=== PATIENT | male | born 1945 | race Caucasian/White ===

== ENCOUNTER 2017-12-11 11:35 | Emergency (ER) | payer OTHER ==
--- NOTE | 2017-12-11 11:46 | CPEKG ---
Heart Rate: 59 RR Interval: 1017 P-R Interval: 184 QRSD Interval: 92 QT Interval: 384 QTC Interval: 381 P Sumner: 61 QRS Sumner: 63 T Wave Sumner: 66 EKG Severity - BORDERLINE ECG - EKG Impression: SINUS RHYTHM EKG Impression: BORDERLINE ST ELEVATION, INFERIOR LEADS Electronically Signed By: Mark Anthony Vega 11-Dec-2017 15:07:30
[2017-12-11 12:12] LABS: PLATELET COUNT 204 10^3/uL (150-400)
[2017-12-11 12:20] LABS: INR 0.95 (0.83-1.16); PROTIME(PATIENT) 12.9 SEC (12.0-15.0)
--- NOTE | 2017-12-11 12:32 | EDPHY ---
H & P Stated Complaint: CP Time Seen by Provider: 12/11/17 11:57 - Personal History Current Tetanus Diphtheria and Acellular Pertussis (TDAP): Yes - Medical/Surgical History Hx Asthma: No Hx Chronic Respiratory Disease: No Hx Diabetes: Yes Hx Cardiac Disease: No Hx Renal Disease: No Hx Cirrhosis: No Hx Alcoholism: No Hx HIV/AIDS: No Hx Splenectomy or Spleen Trauma: No Other PMH: HTN, diabetes, GERD, glaucoma, cataracts - Social History Smoking Status: Never smoked Constitutional: Initial Vital Signs Temperature (C) 36.6 C 12/11/17 11:54 Heart Rate 65 12/11/17 11:54 Respiratory Rate 16 12/11/17 11:54 Blood Pressure 184/92 H 12/11/17 11:54 O2 Sat (%) 97 12/11/17 11:54 O2 Delivery Mode Nasal Cannula O2 (L/minute) 2 Allergies/Adverse Reactions: No Known Drug Allergies Allergy (Verified 12/11/17 12:01) Home Medications: Medication Instructions Recorded LISINOPRIL/HYDROCHLOROTHIAZIDE 12/11/17 Medical Decision Making - Diagnostics Imaging Results: Imaging Impressions Chest/Thorax CTA 12/11/17 12:58 Impression: 1. There is no CT evidence of pulmonary artery thromboemboli. 2. There is no focal infiltrate or effusion. 3. Sequela of old granulomatous disease. 4. There is a simple-appearing 2.6 cm lower pole left renal cortical cyst. 5. Mild generalized left adrenal gland hyperplasia. Findings were discussed with Mark Anthony Vega MD at 13:38, on 12/11/2017. Imaging: Discussed imaging studies w/ sack maker Radiologist, I viewed and interpreted images myself ED Course/Re-evaluation: CHIEF COMPLAINT: Chest pain, dyspnea HISTORY OF PRESENT ILLNESS: 72-year-old gentleman that after having a couple of sips of coffee this morning had a brief episode of upper abdominal and some chest pain. He felt a couple palpitations. He has never had symptoms like that before and got concerned and came to the hospital. He has been traveling from [place] via car recently. He denies any significant shortness of breath but feels little more short of breath than usual. He blames that on altitude. He denies any smoking. Denies any underlying heart or lung disease. REVIEW OF SYSTEMS: A 10 point review of systems was performed and is negative with the exception of the elements mentioned in the history of present illness. PHYSICAL EXAM: HR, BP, O2 Sat, RR. Temp noted General Appearance: Alert, well hydrated, appropriate, and non-toxic appearing. Head: Atraumatic without scalp tenderness or obvious injury Eyes: Pupils equal, round, reactive to light and accommodation, EOMI, no trauma , no injection. Ears: Clear bilaterally, no perforation, normal landmarks Nose: Atraumatic, no rhinorrhea, clear. Throat: There is no erythema or exudates, no lesions, normal tonsils, mucus membranes moist. Neck: Supple, nontender, no lymphadenopathy. Respiratory: No retractions, no distress, no wheezes, and no accessory muscle use. Lungs are clear to auscultation bilaterally. Cardiovascular: Regular rate and rhythm, no murmurs, rubs, or gallops. Good capillary refill all extremities. Gastrointestinal: Abdomen is soft, nontender, non-distended, no masses, no rebound, no guarding, no peritoneal signs. Musculoskeletal: Normal active ROM of all extremities, atraumatic. Neurological: Alert, appropriate, and interactive. The patient has non-focal cranial nerves, motor, sensory, and cerebellar exam. Skin: No rashes, good turgor, no nodules on palpation. Past medical history: This patient apparently had type 2 diabetes but no longer Past surgical history: Noncontributory Family history: Noncontributory but no significant heart disease Social history: Single, retired, does not abuse tobacco drugs or alcohol DIAGNOSTICS/PROCEDURES/CRITICAL CARE TIME: The 12 lead EKG was interpreted by myself. See hard copy and/or "tracemaster" electronic copy for interpretation. Sinus mechanism with borderline bradycardia DIFFERENTIAL DIAGNOSIS: The differential diagnosis for the patient's chest pain included but was not limited to myocardial ischemia, pulmonary embolus, chest wall pain, pleural inflammation, and pulmonary infectious causes. MEDICAL DECISION MAKING: This patient has negative troponin negative EKG and a very poor story for cardiac acute coronary syndrome. He had a couple sips of coffee and then brief episode of sharp chest pain which resolved. He also felt a couple of palpitations he believes. He feels completely normal now. He has been traveling by car from [place] and a slightly elevated D-dimer at 0.57 so I will perform CT angiography. He does not have a primary care doctor here his primary care is in [place]. CTA is negative for PE. Patient's presentation seem most likely related to his GERD. Reassessed patient and recommended Zantac and follow up with a local PCP. He remains unchanged with a normal exam. He is comfortable with plan for follow up. Return precautions discussed. - Data Points Laboratory Results: Laboratory Results 12/11/17 11:50 12/11/17 11:50 12/11/17 12/11/17 12/11/17 11:50 11:50 11:50 WBC 7.62 10^3/uL 10^3/uL (3.80-9.50) RBC 5.25 10^6/uL 10^6/uL (4.40-6.38) Hgb 15.9 g/dL g/dL (13.7-17.5) Hct 48.0 % % (40.0-51.0) MCV 91.4 fL fL (81.5-99.8) MCH 30.3 pg pg (27.9-34.1) MCHC 33.1 g/dL g/dL (32.4-36.7) RDW 11.6 % % (11.5-15.2) Plt Count 204 10^3/uL 10^3/uL (150-400) MPV 10.4 fL fL (8.7-11.7) Neut % (Auto) 59.6 % % (39.3-74.2) Lymph % (Auto) 28.9 % % (15.0-45.0) Keith % (Auto) 8.3 % % (4.5-13.0) Eos % (Auto) 2.8 % % (0.6-7.6) Baso % (Auto) 0.3 % % (0.3-1.7) Nucleat RBC Rel Count 0.0 % % (0.0-0.2) Absolute Neuts (auto) 4.55 10^3/uL 10^3/uL (1.70-6.50) Absolute Lymphs (auto) 2.20 10^3/uL 10^3/uL (1.00-3.00) Absolute Monos (auto) 0.63 10^3/uL 10^3/uL (0.30-0.80) Absolute Eos (auto) 0.21 10^3/uL 10^3/uL (0.03-0.40) Absolute Basos (auto) 0.02 10^3/uL 10^3/uL (0.02-0.10) Absolute Nucleated RBC 0.00 10^3/uL 10^3/uL (0-0.01) Immature Gran % 0.1 % % (0.0-1.1) Immature Gran # 0.01 10^3/uL 10^3/uL (0.00-0.10) PT 12.9 SEC SEC (12.0-15.0) INR 0.95 (0.83-1.16) APTT 25.9 SEC SEC (23.0-38.0) D-Dimer 0.57 ug/mLFEU H ug/mLFEU (0.00-0.50) Sodium 141 mEq/L mEq/L (135-145) Potassium 3.7 mEq/L mEq/L (3.5-5.2) Chloride 101 mEq/L mEq/L (97-110) Carbon Dioxide 27 mEq/l mEq/l (22-31) Anion Gap 13 mEq/L mEq/L (8-16) BUN 14 mg/dL mg/dL (7-23) Creatinine 0.9 mg/dL mg/dL (0.7-1.3) Estimated GFR > 60 Glucose 111 mg/dL H mg/dL (70-100) Calcium 9.7 mg/dL mg/dL (8.5-10.4) Magnesium 1.9 mg/dL mg/dL (1.6-2.3) Troponin I < 0.012 ng/mL ng/mL (0.000-0.034) NT-Pro-B Natriuret Pep 48 pg/mL pg/mL (0-125) Departure - Departure Disposition: Home, Routine, Self-Care Clinical Impression: Chest pain Qualifiers: Chest pain type: other chest pain Qualified Code(s): R07.89 - Other chest pain ; R07.8 - Other chest pain GERD (gastroesophageal reflux disease) Qualifiers: Esophagitis presence: esophagitis presence not specified Qualified Code(s): K21.9 - Gastro-esophageal reflux disease without esophagitis Condition: Good Instructions: Chest Pain (ED), Gastroesophageal Reflux Disease (ED), Ranitidine (By mouth) Additional Instructions: 1. Take Zantac as prescribed for pain. 2. Follow up with a primary care provider in the next week. You've been referred to Dr. Dominguez locally. 3. Return to the ED for any worsening of condition. Referrals: Néstor Dominguez MD [[facility] Primary Care Provider] - As per Instructions
[2017-12-11] MEDS ORDERED: IOPAMIDOL (ISOVUE 370) 100 ML BTL IV ONE (13:03)
[2017-12-11 13:25] VITALS: RESP 18
[2017-12-11 14:08] VITALS: BP 156/68; PULSE 60; TEMP 98.2; O2SAT 94
== END 2017-12-11 14:07 | disposition home or self-care (01) ==
DX: K21.9 Gastro-esophageal reflux disease without esophagitis (principal); I10 Essential (primary) hypertension; E11.9 Type 2 diabetes mellitus without complications
CPT/HCPCS: 71275; 93005; 99285; Q9967

== ENCOUNTER 2018-03-10 18:14 | Emergency (ER) | payer OTHER ==
[2018-03-10 18:24] VITALS: BP 146/91
[2018-03-10] MEDS ORDERED: chlorproMAZINE HCL 25 MG TAB PO PRN (18:41)
--- NOTE | 2018-03-10 18:47 | EDPHY ---
H & P Stated Complaint: Hiccups x 2-3 days;none now Time Seen by Provider: 03/10/18 18:30 HPI/ROS: CHIEF COMPLAINT: Hiccups HISTORY OF PRESENT ILLNESS: The patient is a 72-year-old man with a history of GERD who is on daily an acid pills who complains that he has had hiccups intermittently for the last 5 days. He states that he will use a home remedy such as vinegar and his symptoms will improve for about 10 min then return. The patient states that as soon as he parked his car and walked in the department they stopped and now been stopped for about 30 min. No chest pain, no shortness of breath. REVIEW OF SYSTEMS: Constitutional: denies: chills, fever, recent illness, recent injury EENTM: denies: blurred vision, double vision, nose congestion Respiratory: denies: cough, shortness of breath Cardiac: denies: chest pain, irregular heart rate, lightheadedness, palpitations Gastrointestinal/Abdominal: denies: abdominal pain, diarrhea, nausea, vomiting, blood streaked stools Genitourinary: denies: dysuria, frequency, hematuria, pain Musculoskeletal: denies: joint pain, muscle pain Skin: denies: lesions, rash, jaundice, bruising Neurological: denies: headache, numbness, paresthesia, tingling, dizziness, weakness Hematologic/Lymphatic: denies: blood clots, easy bleeding, easy bruising Immunologic/allergic: denies: HIV/AIDS, transplant EXAM: GENERAL: Well-appearing, well-nourished and in no acute distress. HEAD: Atraumatic, normocephalic. EYES: Pupils equal round and reactive to light, extraocular movements intact, sclera anicteric, conjunctiva are normal. ENT: TMs normal, nares patent, oropharynx clear without exudates. Moist mucous membranes. NECK: Normal range of motion, supple without lymphadenopathy or JVD. LUNGS: Breath sounds clear to auscultation bilaterally and equal. No wheezes rales or rhonchi. HEART: Regular rate and rhythm without murmurs, rubs or gallops. ABDOMEN: Soft, nontender, normoactive bowel sounds. No guarding, no rebound. No masses appreciated. BACK: No CVA tenderness, no spinal tenderness, step-offs or deformities EXTREMITIES: Normal range of motion, no pitting or edema. No clubbing or cyanosis. NEUROLOGICAL: Cranial nerves II through XII grossly intact. Normal speech, normal gait. 5/5 strength, normal movement in all extremities, normal sensation PSYCH: Normal mood, normal affect. SKIN: Warm, dry, normal turgor, no visible rashes or lesions. Source: Patient Exam Limitations: No limitations - Personal History Current Tetanus Diphtheria and Acellular Pertussis (TDAP): Unsure - Medical/Surgical History Hx Asthma: No Hx Chronic Respiratory Disease: No Hx Diabetes: Yes Hx Cardiac Disease: No Hx Renal Disease: No Hx Cirrhosis: No Hx Alcoholism: No Hx HIV/AIDS: No Hx Splenectomy or Spleen Trauma: No Other PMH: HTN, diabetes, GERD, glaucoma, cataracts - Family History Significant Family History: No pertinent family hx - Social History Smoking Status: Never smoked Alcohol Use: Sober Drug Use: None Constitutional: Initial Vital Signs Temperature (C) 37.1 C 03/10/18 18:21 Heart Rate 71 03/10/18 18:21 Respiratory Rate 16 03/10/18 18:21 Blood Pressure 146/91 H 03/10/18 18:21 O2 Sat (%) 98 03/10/18 18:21 O2 Delivery Mode Room Air Allergies/Adverse Reactions: No Known Drug Allergies Allergy (Verified 03/10/18 18:19) Home Medications: Medication Instructions Recorded LISINOPRIL/HYDROCHLOROTHIAZIDE 12/11/17 "Stomach Medication" 03/10/18 chlorproMAZINE HCL [Thorazine (*)] 25 mg PO TID PRN #30 tab 03/10/18 Medical Decision Making ED Course/Re-evaluation: I will treat the patient with Thorazine and give him prescription. I also encouraged him to be faithful in taking his an acid. That is a frequent cause. He does not have any chest pain or shortness of breath or sign of myocardial disease. He declines further workup or testing at this time. We discussed follow-up as well as indications for returning. Differential Diagnosis: Partial list of the Differential diagnosis considered include but were not limited to; persistent hiccups, GERD and although unlikely based on the history and physical exam, I also considered acute coronary disease, PE, hernia. I discussed these differential diagnoses and the plan with the patient as well as the usual and expected course. The patient understands that the diagnosis is provisional and that in medicine we are not always correct and that further workup is often warranted. Usual and customary warnings were given. All of the patient's questions were answered. The patient was instructed to return to the emergency department should the symptoms at all worsen or return, otherwise to followup with the physician as we discussed. - Data Points Medications Given: Discontinued Medications Chlorpromazine HCl (Thorazine) 25 mg PO TID PRN PRN Reason: Hiccups Stop: 09/06/18 18:40 Last Admin: 03/10/18 18:58 Dose: 25 mg Departure - Departure Disposition: Home, Routine, Self-Care Clinical Impression: Hiccups Condition: Fair Instructions: Hiccups (ED) Referrals: NONE *PRIMARY CARE P,. [Primary Care Provider] - As per Instructions Prescriptions: chlorproMAZINE HCL [Thorazine (*)] 25 mg PO TID PRN #30 tab PRN Reason: hiccups
== END 2018-03-10 19:00 | disposition home or self-care (01) ==
DX: R06.6 Hiccough (principal); I10 Essential (primary) hypertension; E11.9 Type 2 diabetes mellitus without complications